=== PATIENT | female | born 1985 | race Caucasian/White ===

== ENCOUNTER 2018-03-11 13:05 | Emergency (ER) | payer MEDICAID ==
--- NOTE | 2018-03-11 13:25 | EDPHY ---
H & P Stated Complaint: [facility]--[facility] GC (test pending) Time Seen by Provider: 03/11/18 13:16 HPI/ROS: CHIEF COMPLAINT: PID HISTORY OF PRESENT ILLNESS: Patient is a 32-year-old healthy female who [facility]. She was diagnosed with pelvic inflammatory disease and culture sent. She was started on doxycycline and antifungal medication but reported a history of allergies to cephalosporins as a child. She is unsure what her reaction was other than she thinks she may have fainted. It was recommended that she come here for a IM gentamicin. REVIEW OF SYSTEMS: Constitutional: denies: chills, fever, recent illness, recent injury EENTM: denies: blurred vision, double vision, nose congestion Respiratory: denies: cough, shortness of breath Cardiac: denies: chest pain, irregular heart rate, lightheadedness, palpitations Gastrointestinal/Abdominal: denies: abdominal pain, diarrhea, nausea, vomiting, blood streaked stools Genitourinary: Mild discomfort and discharge. denies: dysuria, frequency, hematuria Musculoskeletal: denies: joint pain, muscle pain Skin: denies: lesions, rash, jaundice, bruising Neurological: denies: headache, numbness, paresthesia, tingling, dizziness, weakness Hematologic/Lymphatic: denies: blood clots, easy bleeding, easy bruising Immunologic/allergic: denies: HIV/AIDS, transplant EXAM: GENERAL: Well-appearing, well-nourished and in no acute distress. HEAD: Atraumatic, normocephalic. EYES: Pupils equal round and reactive to light, extraocular movements intact, sclera anicteric, conjunctiva are normal. ENT: TMs normal, nares patent, oropharynx clear without exudates. Moist mucous membranes. NECK: Normal range of motion, supple without lymphadenopathy or JVD. LUNGS: Breath sounds clear to auscultation bilaterally and equal. No wheezes rales or rhonchi. HEART: Regular rate and rhythm without murmurs, rubs or gallops. ABDOMEN: Soft, nontender, normoactive bowel sounds. No guarding, no rebound. No masses appreciated. Pelvic exam deferred because previously done BACK: No CVA tenderness, no spinal tenderness, step-offs or deformities EXTREMITIES: Normal range of motion, no pitting or edema. No clubbing or cyanosis. NEUROLOGICAL: Cranial nerves II through XII grossly intact. Normal speech, normal gait. 5/5 strength, normal movement in all extremities, normal sensation PSYCH: Normal mood, normal affect. SKIN: Warm, dry, normal turgor, no visible rashes or lesions. Source: Patient Exam Limitations: No limitations - Personal History LMP (Females 10-55): 8-14 Days Ago Current Tetanus/Diphtheria Vaccine: No Current Tetanus Diphtheria and Acellular Pertussis (TDAP): No - Medical/Surgical History Hx Asthma: No Hx Chronic Respiratory Disease: No Hx Diabetes: No Hx Cardiac Disease: No Hx Renal Disease: No Hx Cirrhosis: No Hx Alcoholism: No Hx HIV/AIDS: No Hx Splenectomy or Spleen Trauma: No Other PMH: denies - Family History Significant Family History: No pertinent family hx - Social History Smoking Status: Never smoked Alcohol Use: Sober Drug Use: None Constitutional: Initial Vital Signs Temperature (C) 37.0 C 03/11/18 13:12 Heart Rate 78 03/11/18 13:12 Respiratory Rate 16 03/11/18 13:12 Blood Pressure 109/77 03/11/18 13:12 O2 Sat (%) 97 03/11/18 13:12 O2 Delivery Mode Room Air Allergies/Adverse Reactions: sulfamethoxazole [From Septra] Allergy (Verified 03/11/18 13:11) trimethoprim [From [facility]ra] Allergy (Verified 03/11/18 13:11) Home Medications: Medication Instructions Recorded Prozac 10 MG (*) 03/11/18 Medical Decision Making ED Course/Re-evaluation: The patient does not sound as though she actually had an allergy to cephalosporins. I will treat her with Rocephin IM here in the emergency department and observe. If she tolerates this we will remove cephalosporin from her allergy list. I have checked several sources the do not list IM gentamicin is a valid option for treating gonorrhea. 3:00 p.m. the patient has done well after her injection. She did not appear to have any allergic-type reactions. She is eager to go home. Will take cephalosporins off for allergy list. Differential Diagnosis: Partial list of the Differential diagnosis considered include but were not limited to; pelvic inflammatory disease, cervicitis and although unlikely based on the history and physical exam, I also considered , urinary tract infection, ovarian cyst. I discussed these differential diagnoses and the plan with the patient as well as the usual and expected course. The patient understands that the diagnosis is provisional and that in medicine we are not always correct and that further workup is often warranted. Usual and customary warnings were given. All of the patient's questions were answered. The patient was instructed to return to the emergency department should the symptoms at all worsen or return, otherwise to followup with the physician as we discussed. - Data Points Medications Given: Discontinued Medications Ceftriaxone Sodium (Rocephin Im Syringe) 250 mg IM ONCE ONE PRN Reason: Protocol Stop: 03/11/18 13:23 Last Admin: 03/11/18 14:28 Dose: 250 mg Departure - Departure Disposition: Home, Routine, Self-Care Clinical Impression: Pelvic inflammatory disease (PID) Condition: Fair Instructions: Pelvic Inflammatory Disease (ED) Referrals: [facility] [Clinic] - As per Instructions
[2018-03-11 15:02] VITALS: BP 102/76
== END 2018-03-11 15:02 | disposition home or self-care (01) ==
DX: N73.9 Female pelvic inflammatory disease, unspecified (principal)
CPT/HCPCS: J0696